=== PATIENT | female | born 1965 | race Caucasian/White ===

== ENCOUNTER 2019-05-14 20:01 | Emergency (ER) | payer OTHER ==
[~2019-05-14] VITALS: Ht 162.6 cm; Wt 88.0 kg
[2019-05-14 20:04] VITALS: Ht 162.6 cm; Wt 88.0 kg
[2019-05-14 23:54] VITALS: BP 134/83
== END 2019-05-14 23:54 | disposition home or self-care (01) ==
LOC: ED 20:01
DX: N83.202 Unspecified ovarian cyst, left side (principal); R10.2 Pelvic and perineal pain; J45.909 Unspecified asthma, uncomplicated; Z98.890 Other specified postprocedural states
CPT/HCPCS: J1885